=== PATIENT | female | born 1960 | race Caucasian/White ===

== ENCOUNTER → 2018-06-17 | Outpatient (CLI) | payer BC ==
--- NOTE | 2018-06-17 10:00 | KCIC ---
Bilateral digital screening mammograms: Reason for examination: Routine screening. Comparison is made to previous studies dated 07/05/2015 and 01/21/2010. Interpretation was made with the benefit of CAD. The skin and nipples show no abnormalities. No abnormal axillary lymph nodes are seen. The breast parenchyma shows scattered fibroglandular density. (Breast density: Category B.) There is some patchy asymmetry in the right breast which is unchanged. There are no new dominant masses, suspicious calcifications or architectural distortions. Impression: No evidence of malignancy. Recommend routine screening. BI-RADS Category 2: Benign. "Our facility is accredited by the [employer] Mammography Program." This patient's information has been entered into a reminder system for the patient to be notified with the results of her examination and a target date for the next mammogram. Electronically signed by: Kelli Padilla MD (06/17/2018 9:55 AM) [id number]
--- NOTE | 2018-06-17 11:25 | KCIC ---
EXAM: Pelvis and left hip, 3 views. HISTORY: Pain. COMPARISON: 07/05/2015 FINDINGS: A frontal view the pelvis and frontal and frog-leg views of the left hip are obtained. There is no fracture, dislocation or subluxation. There is minimal bilateral hip osteoarthritis. There are several pelvic fluid levels. There is facet arthropathy at the lumbosacral junction. IMPRESSION: 1. No acute osseous finding. 2. Minimal hip osteoarthritis and mild degenerative change at the lumbosacral junction. Electronically signed by: More Tang MD (06/17/2018 11:21 AM) [place] [id number]
== END | disposition home or self-care (01) ==
LOC: KCIC MAMMO 09:13
PROVIDERS: ATTEND Nurse Practitioner Family
DX: Z12.31 Encounter for screening mammogram for malignant neoplasm of breast (principal); M16.0 Bilateral primary osteoarthritis of hip
CPT/HCPCS: 73502; 77067

== ENCOUNTER → 2021-05-08 | Outpatient (CLI) | payer BC ==
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
== END ==
LOC: KCIC 14:37
PROVIDERS: ATTEND Nurse Practitioner Family
DX: S22.41XA Multiple fractures of ribs, right side, initial encounter for closed fracture (principal); S20.219A Contusion of unspecified front wall of thorax, initial encounter; X58.XXXA Exposure to other specified factors, initial encounter; Y93.89 Activity, other specified; Y92.89 Other specified places as the place of occurrence of the external cause; Y99.8 Other external cause status
CPT/HCPCS: 71101